=== PATIENT | female | born 1950 | race Caucasian/White ===

== ENCOUNTER 2024-09-04 09:39 | Outpatient (CLI) | payer MEDICARE, SELFPAY ==
--- NOTE | 2024-09-04 10:41 | ECG_ITS ---
Test Date: 2024-09-04 10:47:06 Measurements Intervals [place] Rate: 51 P: 53 NC: 169 QRS: 7 QRSD: 85 T: 16 QT: 419 QTc: 388 Interpretive Statements SINUS BRADYCARDIA OTHERWISE NORMAL ECG No previous ECG available for comparison Electronically Signed On 09-05-2024 07:00:40 CDT by Daniel Pérez M.D.
[2024-09-04 11:07] LABS: Basophils Absolute Auto 0.1 K/mm3 (0.0-0.1); Basophils Percent Auto 0.9 % (0.2-1.2); Eosinophils Absolute Auto 0.1 K/mm3 (0-0.3); Eosinophils Percent Auto 2.1 % (0-4.4); Hematocrit 39.5 % (37.0-47.0); Hemoglobin 13.1 g/dL (12.0-15.0); Immature Granulocyte Absolute 0.02 K/mm3 (0.00-0.031); Immature Granulocyte Percent A 0.3 % (0-0.5); Lymphocytes Absolute Auto 2.31 K/mm3 (0.9-3.2); Lymphocytes Percent Auto 35.2 % (18.3-44.2); Mean Corpuscular HGB Conc 33.2 g/dl (32-36); Mean Corpuscular Hemoglobin 30.8 pg (26-34); Mean Corpuscular Volume 92.9 fl (80-100); Mean Platelet Volume 9.9 fl (7.4-10.4); Monocytes Absolute Auto 0.6 K/mm3 (0.1-0.6); Monocytes Percent Auto 8.4 % (2.6-8.5); Neutrophils Absolute Auto 3.5 K/mm3 (1.3-6.7); Neutrophils Percent Auto 53.1 % (45.5-73.1); Platelet Count Result 334 k/mm3 (150-375); Red Blood Count 4.25 M/mm3 (4.2-5.4); Red Cell Distribution Width 12.9 % (11.5-14.5); White Blood Count 6.6 K/mm3 (4.5-10.0)
[2024-09-04 11:17] LABS: Alanine Aminotransferase 23 U/L (6-35); Albumin Level 4.2 g/dL (3.5-5.1); Alkaline Phosphatase 106 U/L (38-126); Anion Gap 9 mmol/L (4-12); Aspartate Amino Transferase 29 U/L (14-36); Bilirubin,Total 0.4 mg/dL (0.2-1.3); Blood Urea Nitrogen 19 mg/dL (7-17); Calcium 9.3 mg/dL (8.4-10.2); Carbon Dioxide 28 mmol/L (22-30); Chloride 102 mmol/L (98-107); Estimated Glomerular Filt Rate > 60; Glucose 87 mg/dL (65-110); Potassium 3.8 mmol/L (3.4-5.0); Sodium 139 mmol/L (137-145)
[2024-09-04 11:28] LABS: Partial Thromboplastin Time 26.4 Seconds (22.3-36.8); Prothrombin Time 13.3 Seconds (11.1-14.7)
== END 2024-09-04 09:40 | disposition home or self-care (01) ==
LOC: ANHSURGERY 09:50
PROVIDERS: Visit Provider Urology
DX: N81.9 Female genital prolapse, unspecified (principal); I10 Essential (primary) hypertension; Z51.81 Encounter for therapeutic drug level monitoring; Z79.899 Other long term (current) drug therapy
CPT/HCPCS: 36415; 80053; 85025; 85610; 85730; 86850; 86900; 86901; 93005

== ENCOUNTER 2024-09-17 01:01 | Day surgery (SDC) | payer MEDICARE, SELFPAY ==
[2024-09-04 10:02] VITALS: BP 149/64; PULSE 64; RESP 16; TEMP 36.8; O2SAT 98; BMI 29.5
--- NOTE | 2024-09-04 10:17 | PC.NURSE ---
Report to the Outpatient Waiting Room, entrance under the green pavilion located off [facility], at time _09:00am___on date 09/17/24 . Planned Procedure Time: ___11:00am .? Time changes happen often and if your time is changed the preop area will call you the afternoon before. - You and your visitor will be asked to self-screen and do not enter if you have any COVID symptoms. Please call surgeon if you need to reschedule. - A mask is optional within the hospital at this time. Patients may have clear liquids (water, carbonated beverages, clear teas, apple juice) until 3 hours prior to surgery with a maximum of 20 ounces. - No food from midnight until time of surgery and no smoking( 08:00am) Take only the following medications with a SIP of water on the morning of surgery: ___None DO NOT STOP ANY OF YOUR OTHER PRESCRIPTION MEDICATIONS PRIOR TO SURGERY EXCEPT THE FOLLOWING Medications to discontinue per physician __Hold all vitamins and supplements 3 days prior to surgery per Anesthesia ____ Date to take last dose 09/13/24 Please no make-up, nail kenyan, hairspray, perfume, deodorant, or body powder the day of surgery.? No jewelry (including any body piercings) or valuables the day of surgery, leave them at home.? Please take a shower or bath the night before, or the morning of, surgery with an antibacterial soap.? Wear comfortable, loose fitting clothing.? - Jewelry must be removed prior to entering the operating room.? Rings and piercings that are not removed may be cut off. - The hospital will not accept responsibility for valuables.? - Please leave all valuables, including medications, at home the day of surgery. If you are going home after surgery, a licensed class c truck driver must drive you home.? - NO public transportation without another adult if you receive anesthesia. - We recommend that an adult stay with you for 24 hours following discharge. - We also recommend that you do not drive, make important decision, drink alcoholic beverages, or take any drugs that were not prescribed by your health care provider for at least 24 hours after your discharge time. Follow any additional instructions given to you from your surgeon. Telephone instructions given to _patient ____and asked if any additional questions and then verbalized understanding. Patient advised to call surgeon office or pre surgery nurse liaison [phone] if any additional questions.
--- NOTE | 2024-09-14 10:56 | P.HP_ITS ---
H&P: HPI History of Present Illness Date/Time: 09/14/24 10:56 Chief Complaint: Post hysterectomy vaginal vault prolapse, stress incontinence Narrative: Presents for surgical procedure for prolapse. Has rare stress incontinence. We will plan on concomitant correction of this as well Review of Systems Review of Systems: All systems reviewed & are unremarkable except as noted in HPI and below PMFSH Social History Social History Smoking status: Never smoker Alcohol intake: never Substance use: never Living arrangements: with family Additional living arrangements comments: Pt is caregiver for Spiritual care concerns: No Meds Home Medications and Allergies Home Medications Medication Instructions Recorded Confirmed Type cholecalciferol (vitamin D3) 125 125 mcg PO DAILY 09/04/24 09/04/24 History mcg (5,000 unit) tablet (Vitamin D3) cranberry extract 250 mg tablet 250 mg PO DAILY 09/04/24 09/04/24 History estradiol 10 mcg vaginal tablet See Rx Instructions .Route .COMPLEX 09/04/24 09/04/24 History hydrochlorothiazide 25 mg tablet 25 mg PO DAILY 09/04/24 09/04/24 History losartan 25 mg tablet 25 mg PO DAILY 09/04/24 09/04/24 History omeprazole 20 mg capsule,delayed 20 mg PO DAILY 09/04/24 09/04/24 History release Allergies Allergy/AdvReac Type Severity Reaction Status Date / Time Sulfa (Sulfonamide Allergy Rash Verified 09/04/24 10:23 Antibiotics) Exam Narrative: Anterior wall +3. [place] at 0. Urethral mobility documented Assessment and Plan Assessment and plan (1) Prolapse of vaginal vault after hysterectomy: Code(s): N99.3 - Prolapse of vaginal vault after hysterectomy Status: Acute (2) JATINDER (stress urinary incontinence, female): Code(s): N39.3 - Stress incontinence (female) (male) Status: Acute Plan Plan for robotic sacral colpopexy and concomitant mid urethral sling. Understands risks of bleeding, infection, damage surrounding organs, damage to the urinary tract, vaginal mesh extrusion, urinary tract mesh erosion, obstructive voiding requiring secondary procedure, hip and leg pain, dyspareunia, recurrent or persistent prolapse, recurrent or persistent stress incontinence. She agrees to proceed
[2024-09-17] VITALS (11 sets, daily range): BP systolic 121–164; BP diastolic 50–103; PULSE 76–90; RESP 12–24; TEMP 35.6–37.1; O2SAT 95–100; BMI 27.8
--- NOTE | 2024-09-17 07:17 | WPDHPUPDATE1 ---
History and Physical Update Update Date/Time: 09/17/24 07:17 History and Physical has been reviewed, including an updated exam of the patient. There are NO changes in the patient's condition. Risks, benefits, and alternatives have been discussed and questions answered. Patient agrees to proceed with procedure.
[2024-09-17] MEDS: LACTATED RINGERS 1,000 ML 30 ML IV CONT ×2 (09:25→13:40)
--- NOTE | 2024-09-17 10:34 | WPDANESEPPF ---
Anes - Initial Pre Proc Eval Procedure: Operation Date: 09/17/24 11:00 Proposed Procedures p Robotic Sacrocolpopexy, Urethral Sling - Toni Cesar MD Date/Time: 09/17/24 10:34 Surgeon: Toni Cesar MD Pre Op Diagnosis: vag vault prolapse Patient Data Age: 74 Gender: F Height: 1.63 m Weight: 73.65 kg Last Vital Signs Temp 98.7 F 09/17/24 09:15 Pulse 78 09/17/24 09:15 Resp 16 09/17/24 09:15 BP 164/69 H 09/17/24 09:15 Pulse Ox 100 09/17/24 09:15 O2 Del Method Room Air 09/17/24 09:15 Allergies Allergy/AdvReac Type Severity Reaction Status Date / Time Sulfa (Sulfonamide Allergy Rash Verified 09/17/24 09:15 Antibiotics) Home Medications Medication Instructions Recorded Confirmed Type cholecalciferol (vitamin D3) 125 125 mcg PO DAILY 09/04/24 09/17/24 History mcg (5,000 unit) tablet (Vitamin D3) cranberry extract 250 mg tablet 250 mg PO DAILY 09/04/24 09/17/24 History estradiol 10 mcg vaginal tablet See Rx Instructions .Route .COMPLEX 09/04/24 09/04/24 History hydrochlorothiazide 25 mg tablet 25 mg PO DAILY 09/04/24 09/04/24 History losartan 25 mg tablet 25 mg PO DAILY 09/04/24 09/04/24 History omeprazole 20 mg capsule,delayed 20 mg PO DAILY 09/04/24 09/04/24 History release docusate sodium 100 mg capsule 100 mg PO BID #40 caps 09/17/24 Rx (Colace) hydrocodone 5 mg-acetaminophen 325 1 tablet PO Q6H PRN pain #20 tabs 09/17/24 Rx mg tablet Patient hx anesthesia problems: post op nausea/vomiting Family hx anesthesia problems: none Results Review: All pre-operative results and documents have been reviewed as part of the pre-operative evaluation. [facility] Social History Social History Smoking status: Never smoker Alcohol intake: never Substance use: never Living arrangements: with family Additional living arrangements comments: Pt is caregiver for Spiritual care concerns: No Anes - Eval Final PreProcedure Day of Procedure 09/17/24 10:34 Patient weight: normal Heart: regular rate and rhythm Lungs: clear to auscultation Airway: Mallampati scale class II Neurological: alert and oriented Last oral intake: >/= 8 hours ASA classification: II Emergent: no Anesthetic plan: proceed Anesthesia type and monitoring: general ETT and standard monitoring Results Review: All pre-operative results and documents have been reviewed as part of the pre-operative evaluation. Informed Consent: The patient's anesthetic plan and its attendant risks and benefits were discussed with the patient/family/POA. Questions were solicited and answers provided to the satisfaction of the patient/family/POA.
[2024-09-17] MEDS: ceFAZolin 2 GM/D5W 50 ML 2 GM/50 ML BAG IVPB (10:43)
[2024-09-17] MEDS: BUPIVACAINE/EPINEPHRINE 0.5% 50 ML VIAL 28 ML INFILTRATE (12:13)
--- NOTE | 2024-09-17 13:56 | W.PM.PROC2 ---
Procedure Note - Detailed Date of Procedure 09/17/24 Pre-op Diagnosis Vaginal vault prolapse Stress urinary incontinence Rectocele Post-op Diagnosis Same Procedure Performed Robotic assisted laparoscopic sacral colpopexy Urethral sling Rectocele repair Cystoscopy Surgeon Toni Cesar MD Anesthesia General Indications This is a woman with post hysterectomy vaginal vault prolapse as well as stress urinary incontinence. She desires surgical correction. She understands risks of bleeding, infection, diskitis, damage to surrounding organs, damage to the bowel or urinary tract, recurrence of prolapse, dyspareunia, vaginal mesh exposure, urinary tract mesh exposure, obstructive voiding requiring secondary procedure, hip and leg pain, and other perioperative intraoperative and postoperative complications. She is to proceed Findings See below Description of Procedure She was correctly identified. Informed consent obtained. She is brought to the operating room. She was given general anesthesia. She was placed in the lithotomy position. She was given appropriate perioperative antibiotics. She was prepped and draped in a sterile fashion. A time-out performed. I anesthetized the skin 3 fingerbreadths cephalad to the umbilicus. I incised the skin. I located the fascia. I grasped the fascia with Tita clamps. I incised the fascia sharply and a Parker type technique. I placed Vicryl sutures for later fascial closure. I placed a midline trocar. Under direct vision placed 2 additional trocars in the right upper quadrant and 2 additional trocars in the left upper quadrant. She was placed in steep Trendelenburg. The robot was docked. I sat at the console. I mobilized the left colon along the line of T[place]t. I did this sharply. This allowed the colon to get out of the pelvis. With the Sizer in the vagina and created a plane on the anterior and posterior vaginal wall for several cm taking great care not to injure the vagina, bladder, or rectum. Of note was quite scarred in this area due to previous vaginal hysterectomy. I introduced the mesh into the vagina. I sewed the anterior leaflet of mesh on the anterior vaginal wall and posterior leaf of the mesh on the posterior vaginal wall with several sutures of 2 0 [place]-Stuart taking great care not to go through and through. I then opened up the peritoneum over the sacral promontory. I carried this incision into the cul-de-sac. I freed up the edges for later retroperitonealization of the mesh. I located the anterior longitudinal ligament of the sacrum. I cleaned off any fatty tissues. I then tensioned my mesh appropriately. I did a vaginal exam to ensure prolapse reduction without undue tension. I then sewed the proximal leaflet of mesh onto the ligament with several sutures of 2 0 [place]-Stuart. I then used a 2 0 Monocryl to meticulously retroperitonealized all mesh. I allowed the colon to go back into its normal anatomic location. There is no sign of impingement. He had an was then exited. Fascial sutures were closed. The wounds were all irrigated and closed with 4 O Monocryl and skin glue. She was then repositioned and prepped for urethral sling. I marked out the inner thigh incisions. I anesthetized the skin and made those incisions. I then anesthetized the anterior vaginal wall over the mid urethra. I made a 1 cm incision. I dissected out laterally taking great care not to injure the urethra vaginal wall. Of note there was scarring on the anterior vaginal wall. I passed the helical trocars. I did this 1st on the left than on the right from the thigh incision towards the vaginal incision. Sling was connected to the trocars and brought out through the thigh incision. I tensioned the sling appropriately. I cut and removed the plastic sleeves. On exam she had a moderate amount of rectocele. I opted to perform a rectocele repair. She had a narrow introitus. I placed a [place] retractor. I anesthetized the rectocele in the subcutaneous tissues. A midline vaginal incision on the posterior wall. I dissected out laterally taking great care not to injure the rectum or the vaginal wall. I then dissected towards the apex. I took great care not to injure underlying rectum. I then performed a standard plication rectocele type repair using interrupted 0 Vicryl sutures. I trimmed excess vaginal mucosa. I closed as mucosa running 2-0 Vicryl suture. I assured hemostasis. Examination revealed reduction of the rectocele I then performed cystoscopy. The bladder showed no evidence of surgical artifact or tumor. Bilateral ureteral patency was documented. I cut the excess sling material. I closed incisions with glue. She was awakened and transferred to the PACU in stable condition. Implants Sacral colpopexy mesh Urethral sling Estimated Blood Loss 75 Packing No Pathology None sent Complications No immediate complications Condition Stable Disposition PACU
--- NOTE | 2024-09-17 14:58 | ADMGEN ---
This patient, Peyton Barcenas, was admitted to 2 Medical Room 240-01. Patient/family oriented to hospital policies and general routines including ID bracelet, bed and alarms, visiting hours, pain management, procedures, bathroom and other care routines, personal items, smoking policy, room service/diet, and visiting hours. Information on how to activate the Rapid Response Team has been discussed. Patient/Family are encouraged to report perceived risks to care and to ask questions if they do not understand what they are told or what they should do.
[2024-09-17] MEDS: metroNIDAZOLE 500 MG/ISO 100ML 500 MG/100 ML BAG 100 MG IVPB ×2 (15:59→23:00)
[2024-09-17] MEDS: KCL 20 MEQ/D5/0.45% SOD CHL 1,000 ML 100 ML IV CONT (15:59)
[2024-09-17] MEDS: ceFAZolin 1 GM/NS 50 ML 1 GM/50 ML BAG IVPB (17:33)
[2024-09-18 00:11] VITALS: BP 122/41; PULSE 77; RESP 16; TEMP 36.8; O2SAT 97
[2024-09-18] MEDS: ceFAZolin 1 GM/NS 50 ML 1 GM/50 ML BAG IVPB (01:09)
[2024-09-18 05:14] VITALS: BP 124/47; PULSE 78; RESP 16; TEMP 36.6; O2SAT 98
[2024-09-18] MEDS: metroNIDAZOLE 500 MG/ISO 100ML 500 MG/100 ML BAG 100 MG IVPB (07:24)
[2024-09-18 08:00] VITALS: O2SAT 98
[2024-09-18] MEDS: LOSARTAN POTASSIUM 25 MG TABLET PO (08:13)
[2024-09-18] MEDS: CEPHALEXIN 500 MG CAPSULE PO (08:13)
[2024-09-18] MEDS: DOCUSATE SODIUM 100 MG CAPSULE PO (08:13)
[2024-09-18] MEDS: PANTOPRAZOLE 40 MG TABLET PO (08:13)
[2024-09-18] MEDS: hydroCHLOROthiazide 25 MG TABLET PO (08:13)
[2024-09-18] MEDS: ENOXAPARIN 30 MG/0.3 ML SYRINGE SUB-Q (08:14)
[2024-09-18 08:23] VITALS: BP 127/48; PULSE 79; RESP 16; TEMP 36.7; O2SAT 97
[2024-09-18 12:40] VITALS: BP 141/56; PULSE 80; RESP 14; TEMP 36.9; O2SAT 97
== END 2024-09-18 13:30 | disposition home or self-care (01) ==
LOC: ANHSURGERY 08:59 → ANH2MED 14:44
PROVIDERS: Visit Provider Urology
PROC: (CPT 57425; principal; 2024-09-17 11:00)
DX: N99.3 Prolapse of vaginal vault after hysterectomy (principal); N39.3 Stress incontinence (female) (male); Z79.891 Long term (current) use of opiate analgesic
CPT/HCPCS: 57425; 45560; 57288; S2900; A9270; C1769; C1771; C1781; J0690; J1100; J1650; J1836; J2003; J2250; J2405; J2704; J3010; J3480; J7030; J7120